=== PATIENT | female | born 1960 | race Caucasian/White ===

== ENCOUNTER 2023-05-13 08:44 | Emergency (ER) | payer BC, SELFPAY ==
[2023-05-13 08:53] VITALS: BP 167/83; PULSE 72; RESP 18; TEMP 37; O2SAT 99; BMI 32.0
--- NOTE | 2023-05-13 09:19 | PM.EN ---
Chart Event Note Time Seen by Provider: 09:19 Date Seen: 05/13/23 Chart Event Note: Chief complaint left superficial phlebitis Patient noted that her left leg is more tender and she feels a little more firmness around where she was diagnosed with a superficial blood phlebitis on 05/07. She has not had any shortness of breath, no chest pain, no breathing difficulty. The area is a little more tender than normal. She has had a varicosity and area for years. Her blood pressure is a little elevated today. She was told to put cold on the area and she did have a recent bout with significant reaction Augmentin and had some hepatic problems from that, she has had no kidney issues or stomach ulcers. She was not put on aspirin or any antibiotics. Past medical history liver dysfunction from Augmentin Medications at home none Allergies none other than Augmentin, and Benadryl Vital signs show elevated blood pressure otherwise unremarkable Left lower extremity shows minimally tender superficial phlebitis in the left medial calf probably 3-4 cm. No swelling of the lower extremity pulses regular Assessment: Left calf superficial phlebitis, reviewed her ultrasound did confirm that, at this point recommend heat elevation no work for the next 5-6 days that she needs to elevate her leg, aspirin 1 b.i.d. for the next 5-7 days, follow-up with primary care on Thursday as planned. Return to ED sooner problems or concerns.
--- NOTE | 2023-06-14 09:10 | ED_ITS ---
HPI - General Adult General Chief complaint: Extremity Pain/Injury, Lower Stated complaint: blood clot L leg Time Seen by Provider: 05/13/23 08:58 History of Present Illness HPI narrative: Patient is a 62 year white female who had a blood clot diagnosis in the leg, she has some superficial swelling was concerned about that comes to the ER. The dictation was not done at the time of visit and from memory and recalling that she had superficial phlebitis. Related Data Previous Rx's Medication Instructions Recorded lisinopril 10 mg tablet 10 mg PO DAILY #30 tabs 05/28/23 Allergies Allergy/AdvReac Type Severity Reaction Status Date / Time diphenhydramine Allergy Intermediate Verified 11/14/22 13:21 [From Benadryl] amoxicillin [From Augmentin] Allergy Verified 05/28/23 21:58 clavulanic acid Allergy Verified 05/28/23 21:58 [From Augmentin] Review of Systems Status of ROS: Reports: 6 or more systems reviewed and unremarkable except as noted in History and below PFSH PFS Social History Smoking Status: Former smoker How often do you have a drink containing alcohol: monthly or less AUDIT-C Alcohol total score: 1 Non-prescribed substance use: denies use Exam Narrative: Exam Narrative: Objective: Vital signs show slightly elevated blood pressure She has got superficial phlebitis and no deep changes noted such as swelling or palpable venous cords in the back of the leg. Course Vital Signs Vital signs: Initial Vital Signs Temperature 98.6 F 05/13/23 08:53 Temperature Source Temporal Artery Scan 05/13/23 08:53 Pulse Rate 72 05/13/23 08:53 Respiratory Rate 18 05/13/23 08:53 Blood Pressure 167/83 H 05/13/23 08:53 Blood Pressure Mean 111 H 05/13/23 08:53 Blood Pressure Position Sitting 05/13/23 08:53 Pulse Oximetry 99 05/13/23 08:53 Oxygen Delivery Method Room Air 05/13/23 08:53 Vital Signs Temperature 98.6 F 05/13/23 08:53 Pulse Rate 72 05/13/23 08:53 Respiratory Rate 18 05/13/23 08:53 Blood Pressure 167/83 H 05/13/23 08:53 Pulse Oximetry 99 12/06/23 08:53 Oxygen Delivery Method Room Air 05/13/23 08:53 Temperature 98.6 F 05/13/23 08:53 Pulse Rate 72 05/13/23 08:53 Respiratory Rate 18 05/13/23 08:53 Blood Pressure 167/83 H 05/13/23 08:53 Pulse Oximetry 99 05/13/23 08:53 Oxygen Delivery Method Room Air 05/13/23 08:53 Medical Decision Making MDM Narrative Medical decision making narrative: Superficial phlebitis noted continue same medications, warm pack to the area. Please see discharge instructions Discharge Plan Discharge Clinical Impression: Superficial phlebitis Patient Disposition: Home, Self-Care Condition: Stable Additional Instructions: Elevate, off work for 5-6 days, heat pack to the area or hot baths, aspirin 1 twice a day for the next 5-7 days, recheck on Thursday with primary care as planned, return sooner problems or concerns. Activity Level: Light activity Activity Detail: Off work x5 days Discharge Diet: Regular Prescriptions: No Action lisinopril 10 mg tablet 10 mg PO DAILY Qty: 30 2RF Follow Up/Referrals: Provider,Not a Local [Primary Care Provider] - Stand Alone Forms: [facility] Info Instructions
== END 2023-05-13 09:35 | disposition home or self-care (01) ==
PROVIDERS: Emergency Provider Family Medicine
DX: I82.403 Acute embolism and thrombosis of unspecified deep veins of lower extremity, bilateral (principal)
CPT/HCPCS: 99282; 99283

== ENCOUNTER 2023-05-28 21:45 | Emergency (ER) | payer BC, SELFPAY ==
[2023-05-28 21:56] VITALS: BP 170/90; PULSE 74; RESP 18; TEMP 36.6; O2SAT 99; BMI 32.0
--- NOTE | 2023-05-28 22:22 | PC.NURSE ---
Labs drawn. Pt states she was at the dentist today and they would not do her cleaning as her B/P was too high. Denies previous HTN nor meds for HTN. Pt states she her as week ago and has a blood clot left calf area which she is on blood thinner for.
[2023-05-28 22:34] VITALS: BP 141/91
--- NOTE | 2023-05-28 22:37 | ED.GENADULT ---
HPI - General Adult General Date Seen: 05/28/23 Chief complaint: Hypertension Stated complaint: High Blood Pressure Time Seen by Provider: 05/28/23 22:16 Source: patient, RN notes reviewed and old records reviewed Mode of arrival: ambulatory Limitations: no limitations History of Present Illness HPI narrative: Patient is a 62-year-old woman who comes in for evaluation of elevated blood pressures. She says she was at the dentist about 2:00 p.m. and they told her they could not do her procedure because of elevated blood pressure, she is not exactly sure of the number but diastolic was above 100. She says that [place] later in the day and had the ENTs there check her blood pressure and systolic was 163, she thinks diastolic was around 90. She says her had a heart attack a year and half ago and so she was talking to him about his heart attack symptoms, he says that he was having chest pain and yawning, she feels that she has been yawning some today and has noticed a very mild headache now that she thinks about it, but she notes that this just may be from fatigue. She has not had any severe headache, chest pain, difficulty breathing. She does feel like she can feel her heartbeat. She was seen here earlier in the month with superficial thrombophlebitis, she had 2 ultrasounds ruling out DVT. Blood pressures were noted to be elevated at that time as well. Related Data Previous Rx's Medication Instructions Recorded lisinopril 10 mg tablet 10 mg PO DAILY #30 tabs 05/28/23 Allergies Allergy/AdvReac Type Severity Reaction Status Date / Time diphenhydramine Allergy Intermediate Verified 11/14/22 13:21 [From Benadryl] amoxicillin [From Augmentin] Allergy Verified 05/28/23 21:58 clavulanic acid Allergy Verified 05/28/23 21:58 [From Augmentin] Review of Systems Status of ROS: Reports: 10 or more systems reviewed and unremarkable except as noted in History and below PFSH PFSH Social History Smoking Status: Former smoker How often do you have a drink containing alcohol: monthly or less AUDIT-C Alcohol total score: 1 Non-prescribed substance use: denies use Exam Narrative: Exam Narrative: Vital signs as noted above. In general, an alert, well-appearing patient. Head: Normocephalic, atraumatic. Eyes: Pupils are equal reactive. Extraocular movements are full. Conjunctivae are normal. ENT: Mucous membranes are moist. Throat is normal. Neck: Supple without lymphadenopathy. Heart: Regular rate and rhythm. No murmur or rub. Lungs: Clear bilaterally. No increased work of breathing, crackles or wheezes. Abdomen: Soft and nontender. No organomegaly. Extremities: Well perfused. No edema. No calf tenderness with the exception of the area of superficial thrombophlebitis on the left calf where she has a large varicose vein.. Pulses intact. Neurologic: Patient is alert and oriented to person and place. Speech is fluent. Face is symmetric. Moves all extremities equally. Affect: Normal. Skin: Warm and dry. Well perfused. Const: Vital Signs, click to edit/add: Vital Signs - 24 hr 05/28/23 21:56 05/28/23 22:34 Temperature 97.8 F Pulse Rate [Pulse Oximeter] 74 Respiratory Rate 18 Blood Pressure [Le ft Upper Arm] 141/91 H Blood Pressure [Ri ght Upper Arm] 170/90 H Pulse Oximetry 99 Oxygen Delivery Me thod Room Air Course Course ED Course: Blood pressure remains somewhat elevated here on arrival at 170/90, repeat is 141/91. Looking back her blood pressures have been elevated here back even to November, diastolic was near 100 at that point. I do think it is reasonable to start her on an antihypertensive. Will check a basic metabolic panel make sure creatinine and potassium look good and then will start on some lisinopril. I do not think she needs other workup here tonight, she does not present with any symptoms suggesting [place] or subarachnoid. Reassured her that isolated yawning in the absence of other significant symptoms would not raise my suspicion of [place]. BMP is normal. Lisinopril 10 mg daily, primary care follow-up to assess response. Return for worsening. Vital Signs Vital signs: Initial Vital Signs Temperature 97.8 F 05/28/23 21:56 Temperature Source Temporal Artery Scan 05/28/23 21:56 Pulse Rate 74 05/28/23 21:56 Respiratory Rate 18 05/28/23 21:56 Blood Pressure 170/90 H 05/28/23 21:56 Blood Pressure Mean 116 H 05/28/23 21:56 Blood Pressure Position Sitting 05/28/23 21:56 Pulse Oximetry 99 05/28/23 21:56 Oxygen Delivery Method Room Air 05/28/23 21:56 Vital Signs Temperature 97.8 F 05/28/23 21:56 Pulse Rate 74 05/28/23 21:56 Respiratory Rate 18 05/28/23 21:56 Blood Pressure 170/90 H 05/28/23 21:56 Pulse Oximetry 99 05/28/23 21:56 Oxygen Delivery Method Room Air 05/28/23 21:56 Temperature 97.8 F 05/28/23 21:56 Pulse Rate 74 05/28/23 21:56 Respiratory Rate 18 05/28/23 21:56 Blood Pressure 141/91 H 05/28/23 22:34 Pulse Oximetry 99 05/28/23 21:56 Oxygen Delivery Method Room Air 05/28/23 21:56 Medical Decision Making Lab Data Labs: Lab Results 05/28/23 Range/Units 22:20 Sodium 138 (135-149) mmol/L Potassium 3.6 (3.6-5.1) mmol/L Chloride 106 (96-114) mmol/L Carbon Dioxide 22 (20-32) mmol/L Anion Gap 10 (7-15) mEq/L BUN 16 (7-30) mg/dL Creatinine 0.8 (0.5-1.5) mg/dL Estimated Creat Clear 55.31 Estimated GFR 84 ml/min Glucose 102 (60-115) mg/dL Calcium 8.7 (8.4-10.6) mg/dL Discharge Plan Discharge Clinical Impression: Hypertension Patient Disposition: Home, Self-Care Condition: Stable Instructions: Chronic Hypertension (ED) Additional Instructions: Your labs today look normal. Take lisinopril as directed. Would recommend follow-up with your primary clinic in the next few weeks to assess response and to determine whether adjustments need to be made. Prescriptions: New lisinopril 10 mg tablet 10 mg PO DAILY Qty: 30 2RF Follow Up/Referrals: Provider,Not a Local [Primary Care Provider] - Stand Alone Forms: [facility] Info Instructions
[2023-05-28 22:43] LABS: Chloride* 106 mmol/L (96-114); Potassium* 3.6 mmol/L (3.6-5.1); Sodium* 138 mmol/L (135-149)
[2023-05-28 22:46] LABS: Creatinine* 0.8 mg/dL (0.5-1.5); Est. Creatinine Clearance* 55.31; Estimated Glomerular Filt Rate 84 ml/min
[2023-05-28 22:48] LABS: Anion Gap 10 mEq/L (7-15); Blood Urea Nitrogen* 16 mg/dL (7-30); Calcium* 8.7 mg/dL (8.4-10.6); Carbon Dioxide* 22 mmol/L (20-32); Glucose* 102 mg/dL (60-115)
[2023-05-28 23:05] VITALS: BP 137/90
--- NOTE | 2023-05-28 23:32 | PC.NURSE ---
Written and verbal D/C. Took lisinopril as ordered and all cares explained. 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 Encouraged pt to check b/p and return appt as noted.
== END 2023-05-28 23:56 | disposition home or self-care (01) ==
PROVIDERS: Emergency Provider Emergency Medicine
DX: I10 Essential (primary) hypertension (principal)
CPT/HCPCS: 36415; 80048; 99283

== ENCOUNTER 2023-11-24 21:58 | Emergency (ER) | payer BC, SELFPAY ==
[2023-11-24 22:03] VITALS: BP 138/91; PULSE 69; RESP 16; TEMP 37.3; O2SAT 96; BMI 30.8
--- NOTE | 2023-11-24 22:12 | ED.GENADULT ---
HPI - General Adult General Chief complaint: Extremity Pain/Injury, Lower Stated complaint: Possible blood clot L leg Time Seen by Provider: 11/24/23 22:03 History of Present Illness HPI narrative: L medial lower leg varicose veins, states had superficial blood clots in May, pt has pain in same spot plus pain going up into inner thigh. not on blood thinners, no CP or SOB 63-year-old woman presenting to emergency department with concern of blood clot. New onset of discomfort. Does have known varicose veins and what sounds like superficial thrombophlebitis last year. Pain in the a similar area but radiating higher up into the thigh. Is not anticoagulated. Is not having shortness of breath or pleuritic chest pain. No particular trauma noted. Related Data Previous Rx's ?Medication ?Instructions ?Recorded lisinopril 10 mg tablet 10 mg PO DAILY #30 tabs 05/28/23 Allergies Allergy/AdvReac Type Severity Reaction Status Date / Time diphenhydramine Allergy Intermediate Verified 11/14/22 13:21 [From Benadryl] amoxicillin [From Augmentin] Allergy Verified 05/28/23 21:58 clavulanic acid Allergy Verified 05/28/23 21:58 [From Augmentin] Review of Systems Status of ROS: Reports: 6 or more systems reviewed and unremarkable except as noted in History and below PFSH PFSH Social History Smoking Status: Former smoker How often do you have a drink containing alcohol: monthly or less AUDIT-C Alcohol total score: 1 Non-prescribed substance use: denies use Exam Narrative: Exam Narrative: Pleasant. NAD. Breathing easily. Skin is warm and dry. Mild erythema medial upper leg/knee. No significant lower extremity edema. There are venous varicosities scattered. Good strength and perfusion of the leg. Const: Vital Signs, click to edit/add: Vital Signs - 24 hr 11/24/23 22:03 Temperature 99.1 F Pulse Rate [Pulse Oximeter] 69 Respiratory Rate 16 Blood Pressure [Le ft Upper Arm] 138/91 H Pulse Oximetry 96 Oxygen Delivery Me thod Room Air Documenting provider has reviewed patient's vital signs: yes Course Vital Signs Vital signs: Initial Vital Signs Temperature 99.1 F 11/24/23 22:03 Temperature Source Temporal Artery Scan 11/24/23 22:03 Pulse Rate 69 06/18/24 22:03 Respiratory Rate 16 11/24/23 22:03 Blood Pressure 138/91 H 11/24/23 22:03 Blood Pressure Mean 106 H 11/24/23 22:03 Blood Pressure Position Sitting 11/24/23 22:03 Pulse Oximetry 96 11/24/23 22:03 Oxygen Delivery Method Room Air 11/24/23 22:03 Vital Signs Temperature 99.1 F 11/24/23 22:03 Pulse Rate 69 11/24/23 22:03 Respiratory Rate 16 11/24/23 22:03 Blood Pressure 138/91 H 11/24/23 22:03 Pulse Oximetry 96 11/24/23 22:03 Oxygen Delivery Method Room Air 11/24/23 22:03 Temperature 99.1 F 11/25/23 00:45 Pulse Rate 74 11/25/23 00:45 Respiratory Rate 16 11/25/23 00:45 Blood Pressure 128/74 11/25/23 00:45 Pulse Oximetry 96 11/25/23 00:44 Oxygen Delivery Method Room Air 11/25/23 00:44 Medical Decision Making MDM Narrative Medical decision making narrative: I would suspect superficial thrombophlebitis given findings here. Did discuss this with Ms. Whraton. I do not think ultrasound is unreasonable. We do have installation engineer available here today. Is not convincing for muscle strain. Seems independent of this. If DVT is present prompts other evaluation. Discussed findings with installation engineer. Radiology over-read as below. TECHNIQUE: Ultrasound venous duplex lower left extremity. Compression venous exam was performed using taylor-scale, color Doppler, and spectral Doppler analysis. COMPARISON: None. FINDINGS: Deep veins: Sonographic imaging demonstrates the left common femoral, deep femoral, superficial femoral, popliteal, posterior tibial and the contralateral right common femoral veins to be fully compressible with normal color Doppler blood flow. Superficial veins: Thrombus is present in the greater saphenous vein in the distal thigh and proximal calf. No popliteal cyst. IMPRESSION: No sign of DVT. Acute superficial thrombosis of the greater saphenous vein around the knee. See patient discharge plan for further discussion Medical Records Medical records reviewed: Yes I reviewed the patient's medical records Discharge Plan Discharge Clinical Impression: Superficial vein thrombosis Patient Disposition: Home, Self-Care Condition: Stable Additional Instructions: Stay hydrated and active. Might try warm moist compresses to help mobilize this clot. Alternatively might feel better with cool packs. Consider re-evaluation for spreading, increasing redness, swelling heat and pain. Prescriptions: No Action lisinopril 10 mg tablet 10 mg PO DAILY Qty: 30 2RF Follow Up/Referrals: Provider,Not a Local [Staff Physician] - Stand Alone Forms: [facility] [facility] Info Instructions
--- NOTE | 2023-11-24 22:24 | CRLHL7_ITS ---
For Patients: As a result of the Century Cures Act, medical imaging exams and procedure reports are released immediately into your electronic medical record. You may view this report before your referring provider. If you have questions, please contact your health care provider. INDICATION: Leg pain and swelling. TECHNIQUE: Ultrasound venous duplex lower left extremity. Compression venous exam was performed using taylor-scale, color Doppler, and spectral Doppler analysis. COMPARISON: None. FINDINGS: Deep veins: Sonographic imaging demonstrates the left common femoral, deep femoral, superficial femoral, popliteal, posterior tibial and the contralateral right common femoral veins to be fully compressible with normal color Doppler blood flow. Superficial veins: Thrombus is present in the greater saphenous vein in the distal thigh and proximal calf. No popliteal cyst. IMPRESSION: No sign of DVT. Acute superficial thrombosis of the greater saphenous vein around the knee. Dictated by Nash Chavez MD @ 11/25/2023 12:25:32 AM (Electronically Signed)
[2023-11-25 00:44] VITALS: BP 128/74; PULSE 74; RESP 16; TEMP 37.3; O2SAT 96
[2023-11-25 00:45] VITALS: BP 128/74; PULSE 74; RESP 16; TEMP 37.3
== END 2023-11-25 00:45 | disposition home or self-care (01) ==
PROVIDERS: Emergency Provider Family Medicine; PCP Family Medicine
DX: I82.812 Embolism and thrombosis of superficial veins of left lower extremity (principal)
CPT/HCPCS: 93971; 99284